=== PATIENT | male | born 1970 | race American Indian/Alaskan Native ===

== ENCOUNTER 2017-02-24 15:09 | Emergency (ER) | payer SELFPAY ==
[2017-02-24 16:37] VITALS: BP 142/96
--- NOTE | 2017-02-24 16:42 | Emergency Department Report ---
Chief Complaint: Pain General Stated Complaint: HBS/BODY INFLAMMATION Time Seen by Provider: 02/24/17 16:30 - HPI History of Present Illness: pain in joints pain everywhere out of dm meds as well as gout meds pmh gout dm constricted vss nad - ROS Review of Systems: as noted - Exam Vital Signs: Vital Signs 02/24/17 16:30 Temperature 98.4 F Pulse Rate 82 Respiratory 18 Rate Blood Pressure 142/96 O2 Sat by Pulse 100 Oximetry MSE screening note: Focused history and physical exam performed. Due to findings the following was ordered: ED Disposition for MSE Condition: Stable
[2017-02-24 17:31] LABS: Basophils % (Auto) 0.9 % (0.0-1.8); Eosinophils % (Auto) 0.8 % (0.0-4.3); Hematocrit 43.8 % (35.5-45.6); Hemoglobin 14.4 gm/dl (11.8-15.2); Mean Corpuscular HGB Conc 33 % (32-34); Mean Corpuscular Hemoglobin 29 pg (28-32); Mean Corpuscular Volume 89 fl (84-94); Platelet Count 189 K/mm3 (140-440); Red Blood Count 4.91 M/mm3 (3.65-5.03); Red Cell Distribution Width 14.4 % (13.2-15.2); White Blood Count 11.8 K/mm3 (4.5-11.0)
[2017-02-24 17:55] LABS: Alanine Aminotransferase 65 units/L (7-56); Albumin 4.5 g/dL (3.9-5); Albumin/Globulin Ratio 1.4 %; Alkaline Phosphatase 73 units/L (35-129); Anion Gap 23 mmol/L; Bilirubin,Total 0.3 mg/dL (0.1-1.2); Blood Urea Nitrogen 14 mg/dL (9-20); Calcium 9.5 mg/dL (8.4-10.2); Carbon Dioxide 24 mmol/L (22-30); Chloride 92.5 mmol/L (98-107); Glucose 256 mg/dL (75-100); Sodium 135 mmol/L (137-145); Total Protein 7.8 g/dL (6.3-8.2); Uric Acid 5.1 mg/dL (3.5-7.6)
[2017-02-24 18:15] LABS: Bilirubin,Urine NEG (Negative); Blood,Urine NEG (Negative); Ketones,Urine TR mg/dL (Negative); Leukocyte Esterase,Urine NEG (Negative); Nitrite,Urine NEG (Negative); Protein,Urine <15 mg/dL mg/dL (Negative); Urobilinogen,Urine < 2.0 mg/dL (<2.0); WBC,Urine < 1.0 /HPF (0.0-6.0)
== END 2017-02-24 21:27 | disposition left against medical advice (07) ==
LOC: ED 15:09
DX: M79.1 Myalgia (principal); Z53.21 Procedure and treatment not carried out due to patient leaving prior to being seen by health care provider
CPT/HCPCS: 36415; 80053; 81001; 82962; 84550; 85025; 86038